=== PATIENT | male | born 2000 | race Caucasian/White ===

== ENCOUNTER 2023-12-13 17:40 | Emergency (ER) | payer OTHER ==
[2023-12-13] MEDS: Diphtheria,Pertussis(Acell),Tetanus Vaccine 0.5 ML Syringe IM ONE (19:00)
[2023-12-13] MEDS: Bacitracin Oint 1 GM U/D Packet TOP ONE (19:09)
== END 2023-12-13 19:16 | disposition home or self-care (01) ==
LOC: JP.ED 17:40
DX: S01.81XA Laceration without foreign body of other part of head, initial encounter (principal); S01.01XA Laceration without foreign body of scalp, initial encounter; S30.0XXA Contusion of lower back and pelvis, initial encounter; Z23 Encounter for immunization; W22.8XXA Striking against or struck by other objects, initial encounter
CPT/HCPCS: 12001; 12011; 90471; 90715; 99282-25; 99284